=== PATIENT | male | born 1955 | race Caucasian/White ===

== ENCOUNTER 2018-11-05 16:34 | Outpatient (CLI) | payer OTHER ==
--- NOTE | 2018-11-05 17:07 | Diagnostic Imaging Report ---
MARTIN GONZALEZ [facility] [id number] [address] [id number] Report Submission Date: November 05, 2018 5:02:13 PM CDT Patient Study Name: JAKE IGNACIO Date: November 05, 2018 4:35:56 PM CDT Modality Type: DX Gender: M Description: HAND 3 VIEWS OR MORE : 55 Institution: [facility] Physician: MARTIN GONZALEZ Left hand, three views History: Fracture follow-up. Findings: No comparison is available. There is a fracture through the base of the 5th metacarpal present with dorsal displacement noted. No significant callus or periosteal reaction is visualized at this time. The remaining osseous structures are intact. Impression: 1. Fracture through the base of the 5th metacarpal with mild dorsal displacement. Electronically signed on November 05, 2018 5:02:13 PM CDT by: Toby THOMPSON
== END 2018-11-05 16:35 ==
LOC: RAD 16:34
PROVIDERS: ATTEND Family Medicine
DX: S62.317A Displaced fracture of base of fifth metacarpal bone, left hand, initial encounter for closed fracture (principal)
CPT/HCPCS: 73130